=== PATIENT | female | born 1990 | race Caucasian/White ===

== ENCOUNTER → 2018-04-11 | Outpatient (CLI) | payer OTHER ==
[2018-04-19 17:10] LABS: CHLAMYDIA BY NAA Negative (Negative); GONOCOCCUS BY NAA Negative (Negative); TRICH VAG BY NAA Negative (Negative)
== END | disposition home or self-care (01) ==
LOC: LAB 10:30 → LAB SHORT 10:30
PROVIDERS: Advanced Practice Midwife
DX: Z01.419 Encounter for gynecological examination (general) (routine) without abnormal findings (principal); Z11.3 Encounter for screening for infections with a predominantly sexual mode of transmission
CPT/HCPCS: 87491; 87591; 87661; G0123

== ENCOUNTER 2021-02-16 10:09 | Emergency (ER) | payer OTHER ==
[~2021-02-16] VITALS: Ht 167.6 cm; Wt 61.2 kg
== END 2021-02-16 13:25 | disposition home or self-care (01) ==
LOC: ER 10:09
DX: H57.04 Mydriasis (principal); T49.5X5A Adverse effect of ophthalmological drugs and preparations, initial encounter
CPT/HCPCS: 99282; A9270